=== PATIENT | male | born 1975 | race African-American/Black ===

== ENCOUNTER 2019-02-15 09:20 | Outpatient (CLI) | payer OTHER ==
--- NOTE | 2019-02-15 10:23 | RAD ---
RADIOGRAPH CHEST 2 VIEWS: DATE: 02/15/2019 HISTORY: 43-year-old male with HIV presents with cough. FINDINGS: The lungs are clear. The cardiomediastinal silhouette and hilar shadows appear normal. There is no pl eural effusion or pneumothorax. No osseous abnormality is identified. IMPRESSION: Normal
== END 2019-02-15 09:21 | disposition home or self-care (01) ==
LOC: CT 09:20 → RAD 09:21
PROVIDERS: ATTEND Family Medicine
DX: B20 Human immunodeficiency virus [HIV] disease (principal); R05 Cough
CPT/HCPCS: 71046

== ENCOUNTER 2019-02-21 17:04 | Inpatient (IN) | payer OTHER ==
[2019-02-21 17:53] LABS: #Eosinphils 0.1 thou/uL (0.0-0.7); #Lymphocytes 0.7 thou/uL (1.20-3.40); #Monocytes 0.4 thou/uL (0.11-0.59); %Basophils 0.4 % (0.0-1.0); %Eosinophils 2.4 % (0.0-10.0); %Lymphocytes 22.7 % (21.0-51.0); %Monocytes 12.2 % (0.0-10.0); %Neutrophils 62.3 % (42.0-75.0); Hemoglobin 11.9 g/dL (14.0-18.0); Mean Corpuscular HGB CONC 33.8 g/dL (32.0-36.0); Mean Corpuscular Hemoglobin 28.3 pg (27.0-31.0); Mean Corpuscular Volume 83.7 fL (78.0-98.0); Mean Platelet Volume 7.2 fL (7.4-10.4); Platelet Count 228 thou/uL (130-400); Red Blood Cell (RBC) Count 4.21 mill/uL (4.70-6.10); White Blood Cell (WBC) Count 3.2 thou/uL (4.8-10.8)
[2019-02-21 18:00] LABS: Bacteria/HPF None Seen HPF (None Seen); Bilirubin Negative (Negative); Blood, Urine 1+ (Negative); Clarity Clear (Clear); Glucose, Urine (Dipstick) Normal (Negative); Leukocyte Negative Leu/uL (Negative); Mucous/LPF 2+ LPF (<2+); Nitrite Negative (Negative); Protein, Urine (Dipstick) 30 mg/dL (Neg-Trace); Squamous Epithelial None Seen HPF (0-3); WBC/HPF 0-3 HPF (0-3)
[2019-02-21 18:17] LABS: ALT (SGPT) 12 U/L (8-55); AST (SGOT) 22 U/L (5-34); Albumin 3.9 g/dL (3.5-5.0); Alkaline Phosphatase 84 U/L (40-150); Anion Gap 14 mmol/L (10-20); BUN (Urea Nitrogen) 9 mg/dL (8.9-20.6); Bilirubin, Total 0.4 mg/dL (0.2-1.2); Calc. Creatinine Clearance 0 mL/min (70-130); Calcium 9.7 mg/dL (7.8-10.44); Carbon Dioxide 22 mmol/L (22-29); Chloride 104 mmol/L (98-107); Estimated GFR-MDRD Greater than 90; Globulin 6.4 g/dL (2.4-3.5); Glucose 85 mg/dL (70-105); Protein, Total 10.3 g/dL (6.0-8.3); Sodium 136 mmol/L (136-145)
--- NOTE | 2019-02-21 19:51 | CT ---
CT head noncontrast HISTORY: Dizziness. Altered mental status. FINDINGS: There is no evidence of acute intracranial hemorrhage or infarct. The ventricles appear nor mal in size, shape and position. There is no mass effect or shift of midline structures. Visualized paranasal sinuses remain well-aerated. IMPRESSION: No acute intracranial abnormalities are demonstrated.
[2019-02-21] MEDS ORDERED: Meclizine HCl 25 MG TAB ONE (19:55)
[2019-02-21] MEDS ORDERED: Ondansetron ODT 4 MG TAB PO PRN (22:41)
[2019-02-21] MEDS: Acetaminophen 325 MG TAB PO PRN (22:51)
[2019-02-21] MEDS: Lactated Ringer's 1,000 ML IV SCH (22:51)
[2019-02-21] MEDS: Ondansetron PF 4 MG/2 ML Vial IVP PRN (22:52)
[2019-02-21 23:27] VITALS: BMI 23.1
--- NOTE | 2019-02-21 23:32 | PDOC.FPRHP ---
- History of Present Illness Chief Complaint: generalized weakness History of Present Illness: 43 y/o m, recently diagnosed with HIV, CD4 count of 36, presents to the ED after having gradual increasing weakness and dizziness. Pt states he found out he had HIV last Monday. He plans to tell his family of his diagnosis tomorrow (02/23). C/o body aches, muscle cramps, constipation, nausea, dizziness and SOB. He states he has lost weight of 30 pounds. Pt states he has had sexual intercourse with men since the age of 19. He had a high risk partner starting X2 years ago that was incarcerated for X15 years. He admits to unprotected intercourse with him X1 time. He states he was screened for HIV in 2017 and Jul 2018 with negative results. Pt states he received his anti-retrovirals yesterday but has not started taking them yet. He has also been on bactrim this week for ppx. He c/o of a scaling rash in his fox and hairline that got worse with the bactrim use. - Allergies/Adverse Reactions Allergies Allergy/AdvReac Type Severity Reaction Status Date / Time No Known Drug Allergies Allergy Verified 02/22/19 01:12 - Home Medications Medication Instructions Recorded Confirmed Type Lamivudine/Tenofovir Disop Fum 1 tab DAILY 02/21/19 02/22/19 History [Cimduo 300-300 mg Tablet] Promethazine [Phenergan] 1 tab ASDIR PRN 02/21/19 02/22/19 History Sulfamethoxazole/Trimethoprim 1 tab BID 02/21/19 02/21/19 History [Bactrim DS] - History PMHx: benign. Recent HIV diagnosis, CD4 count 36 PSHx: Appendectomy, ureter stent placement FHx: mother and father both had HTN and DM Social: female and male sexual encounters. X10 male lifetime sexual partners. Several tattoos. Denies IVDA, states he smoke occasional marijuana and used meth by smoking one time last year. - Review of Systems General: reports: fever/chills, weight/appetite/sleep changes (30 lbs since October 2018), night sweats, fatigue Eyes: denies: eye pain, vision changes ENT: denies: nasal congestion, rhinorrhea Respiratory: reports: shortness of breath, exercise intolerance. denies: cough , congestion Cardiovascular: denies: chest pain, palpitation, edema Gastrointestinal: reports: nausea, constipation, abdominal pain. denies: vomiting, diarrhea Genitourinary: denies: incontinence, dysuria, polyuria Skin: reports: rashes (scaling rash in fox and hairline), lesions, itching Musculoskeletal: reports: pain, arthritis/arthralgias Neurological: reports: weakness. denies: numbness, syncope, seizure - Vital signs BP: 126/88 HR: 108 RR: 33 Tmax: 98.0 Pox: 99% on RA Wt: 71 kg - Physical Exam Constitutional: NAD, awake, alert and oriented, other (chachetic) HEENT: normocephalic and atraumatic, PERRLA, EOMI, conjunctiva clear, no scleral icterus, grossly normal vision, grossly normal hearing, MMM, oropharynx clear, other (poor dentition) Neck: supple, FROM, trachea midline, no JVD Chest: no-tender to palpation, other (0.5-1 cm circular lesions scattered over chest and back.) Heart: RRR, normal S1/S2, no murmurs/rubs/gallops, pulses present, no edema Lungs: no respiratory distress, good air movement, no wheezing, no retractions, other (Fine Crackles in right lower lobe) Abdomen: soft, non-tender, bowel sounds present, no masses/distention, no hernias Musculoskeletal: normal structure, normal tone, ROM grossly normal Neurological: no focal deficit, CN II-XII intact, normal sensation Skin: good turgor, capillary refill <2 seconds, no jaundice, other (0.5-1 cm circular macular and erythematous lesions scattered over back, chest, and extremities.) -Skin: scalp and under fox erythmatous with overlying scaling skin rash. Heme/Lymphatic: no unusual bruising or bleeding, no purpura, no petechia Psychiatric: normal mood and affect, good judgment and insight, intact recent and remote memory FMR H&P: Results - Labs Result Diagrams: 02/21/19 23:15 02/21/19 17:44 Lab results: WBC 3.2 thou/uL (4.8-10.8) L 02/21/19 17:44 Hgb 11.9 g/dL (14.0-18.0) L 02/21/19 17:44 Hct 35.2 % (42.0-52.0) L 02/21/19 17:44 MCV 83.7 fL (78.0-98.0) 02/21/19 17:44 Plt Count 228 thou/uL (130-400) 02/21/19 17:44 Neutrophils % 62.3 % (42.0-75.0) 02/21/19 17:44 Sodium 136 mmol/L (136-145) 02/21/19 17:44 Potassium 4.0 mmol/L (3.5-5.1) 02/21/19 17:44 Chloride 104 mmol/L (98-107) 02/21/19 17:44 Carbon Dioxide 22 mmol/L (22-29) 02/21/19 17:44 BUN 9 mg/dL (8.9-20.6) 02/21/19 17:44 Creatinine 0.78 mg/dL (0.7-1.3) 02/21/19 17:44 Glucose 85 mg/dL (70-105) 02/21/19 17:44 Calcium 9.7 mg/dL (7.8-10.44) 02/21/19 17:44 Total Bilirubin 0.4 mg/dL (0.2-1.2) 02/21/19 17:44 AST 22 U/L (5-34) 02/21/19 17:44 ALT 12 U/L (8-55) 02/21/19 17:44 Alkaline Phosphatase 84 U/L (40-150) 02/21/19 17:44 Serum Total Protein 10.3 g/dL (6.0-8.3) H 02/21/19 17:44 Albumin 3.9 g/dL (3.5-5.0) 02/21/19 17:44 Urine Ketones Negative mg/dL (Negative) 02/21/19 17:39 Urine Blood 1+ (Negative) A 02/21/19 17:39 Urine Nitrite Negative (Negative) 02/21/19 17:39 Ur Leukocyte Esterase Negative Kenisha/uL (Negative) 02/21/19 17:39 Urine RBC 11-20 HPF (0-3) A 02/21/19 17:39 Urine WBC 0-3 HPF (0-3) 02/21/19 17:39 Ur Squamous Epith Cells None Seen HPF (0-3) 02/21/19 17:39 Urine Bacteria None Seen HPF (None Seen) 02/21/19 17:39 CD4 count 36 - Radiology Interpretation CT scan - head Status: report reviewed by me (no acute findings.) FMR H&P: A/P - Problem List (1) HIV-1 (human immunodeficiency virus I) Current Visit: Yes Status: Acute Code(s): B20 - HUMAN IMMUNODEFICIENCY VIRUS [HIV] DISEASE (2) AIDS (acquired immune deficiency syndrome) Current Visit: Yes Status: Acute (3) Kaposi sarcoma Current Visit: Yes Status: Suspected Code(s): C46.9 - KAPOSI'S SARCOMA, UNSPECIFIED (4) Problems related to high-risk sexual behavior Current Visit: Yes Status: Acute Code(s): Z72.51 - HIGH RISK HETEROSEXUAL BEHAVIOR (5) Superficial fungal infection of skin Current Visit: Yes Status: Acute Code(s): B36.9 - SUPERFICIAL MYCOSIS, UNSPECIFIED - Plan 43 y/o M admitted to inpatient medical for evaluation of recent HIV diagnosis with low CD4 count. 1. HIV - Recent diagnosis - CD4 count 36 at [facility] lab 2. AIDS - CD4 count - Bactrim and Aithromycin PPx - Ordered serum protein electrophoresis, CBC with smear, EAR and CRP to work up possible malignancy in immunocompromised state - Pt needs thorough lymph node exam to evaluate for possible lymphoma 3. Kaposi Sarcoma - suspected lesions scattered diffusely. 4. High risk sexual behavior with men -Ordered labs for Hep B, Hep C - RPR drawn in clinic, negative - HIV type 1 positive. 5. Tinea Capitus - Fungal infection of scalp and fox skin. - Topical antifungal Nystatin cream Code Status: full code Diet: Regular diet DVT ppx: SCD's Disposition/LOS: Pt stable anticipated at least 2 midnights inpatient FMR H&P: Upper Level - Pertinent history 43 yo male with recent diagnosis of HIV presents with loss of appetite, subjective fevers at home, and overall feeling unwell. Please see agriculture intern note above for further information. General: Cachectic male lying in bed, NAD CV: RRR, no murmurs Respiratory: CTA, no wheezing Extremities: no edema, moves all four equally. Skin: erythematous and scaling lesion to top of head. Scattered purple lesions over body. Psych: Anxious mood with congruent affect, tearful at times Neuro: No focal deficits - Plan Date/Time: 02/21/19 1516 I, Mayo Donaldson MD, have evaluated this patient and agree with findings/ plan as outlined by agriculture intern resident. Pertinent changes/additions are listed here. 1. AIDS - Will check SPEP and Hep C to determine other co-morbidities - Consult I&D in AM - Initiated prophylactic antibiotics 2. Anemia - Likely chronic - Monitor for signs and symptoms of bleeding. - Previously failed colonoscopy due to inadequate prep CODE STATUS: FULL CODE PCP: [facility] Disposition: Stable, will admit for further evaluation. Addendum - Attending - Attending Attestation Date/Time: 02/21/19 9881 I personally evaluated the patient and discussed the management with Dr. Heart/ Anika. I agree with the History, Examination, Assessment and Plan documented above with any addition or exceptions noted below. Patient here with progressive fatigue, night sweats, weight loss, anorexia, body aches, and intermittent fevers. Diagnosed in our clinic 1 week ago with HIV , found to have CD4 count of near 30. He has not started HAART therapy yet. Presents due to progressive symptoms. Exam shows cachexia and scattered skin abnormalities that are overall stable from his clinic visit 1 week ago. He had CXR done outpatient that did not show evidence for pulmonary infection such as PJP or cavitary lesion. Patient lab work shows mild leukopenia, elevated total protein and globulin. Patient to be admitted for acute on chronic immune compromise due to AIDS. ID to be consulted. Will obtain cultures to screen for infection, PCT. Start Bactrim and Azithromycin for ppx but will expand to broad spectrum abx if any source becomes apparent. He will also need peripheral smear and excellent lymph node exam to screen for hematological malignancy such as lymphoma. Will order SPEP due to increased globulins as well as ESR/CRP. Obtain TB testing. Primary concerns at this time would be for either infection in setting of severe immune compromised status or malignancy. 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 No current evidence for viral or candidal esophagitis. Will also screen for other comorbid conditions such as HepC. He was negative for Syphilis in our clinic last week.
[2019-02-21 23:57] LABS: Band 10 % (5-11); Eosinophils 2 % (0-10); Hemoglobin 10.8 g/dL (14.0-18.0); Hypochromia SLIGHT = 6-15 cells (100X) (0-5/hpf); Lymphocytes 16 % (21-51); MDiff Complete? YES; Mean Corpuscular HGB CONC 34.4 g/dL (32.0-36.0); Mean Corpuscular Hemoglobin 28.2 pg (27.0-31.0); Mean Corpuscular Volume 81.8 fL (78.0-98.0); Mean Platelet Volume 7.5 fL (7.4-10.4); Metamyelocyte 2 % (0-0); Neutrophil 70 % (42-75); Platelet Count 213 thou/uL (130-400); Platelet Morphology Comment Appears Adequate; RBC Distribution Width 12.1 % (11.5-14.5); Red Blood Cell (RBC) Count 3.84 mill/uL (4.70-6.10); White Blood Cell (WBC) Count 4.2 thou/uL (4.8-10.8)
[2019-02-22 00:29] LABS: HBCM Index 0.09 S/CO (0-0.79); HBSAg Index 0.17 S/CO (0-0.99); Hep B Surf AB Non-Reactive (NonReactive); Hep B Surf Ag Non-Reactive S/CO (NonReactive); Hep C IgG Ab Non-Reactive (NonReactive); Hep C Index 0.12 S/CO (0-0.79); Hepatitis B Core IgM Abs Non-Reactive (NonReactive)
[2019-02-22] MEDS ORDERED: Promethazine 25 MG TAB PO PRN (00:52)
[2019-02-22] MEDS ORDERED: Azithromycin 250 MG TAB PO SCH ×2 (01:00→09:00)
--- NOTE | 2019-02-22 05:46 | PDOC.FM ---
- Subjective Subjective: Patient doing well this morning. Reports that he has been having night sweats for a few months. Reports of a recent fever at home a few days ago of 102.1. Has also been having a dry cough. - Objective Vital Signs & Weight: Vital Signs (12 hours) Temp Pulse Resp BP Pulse Ox 02/22/19 04:00 97.6 F 87 18 101/69 99 02/21/19 22:41 98.0 F 102 H 20 102/67 99 Weight Weight 71 kg Result Diagrams: 02/22/19 07:20 02/22/19 07:20 Phys Exam - Physical Examination Constitutional: NAD clammy HEENT: moist MMs, sclera anicteric Neck: no nodes, full ROM Respiratory: no wheezing, clear to auscultation bilateral Cardiovascular: RRR, no significant murmur Gastrointestinal: soft, non-tender Musculoskeletal: no edema, pulses present Neurological: normal sensation, moves all 4 limbs no axillary, femoral, or cervical nodes appreciated on exam Psychiatric: normal affect, A&O x 3 Skin: normal turgor, cap refill <2 seconds Deviation from normal: spots throughout back and arms Dx/Plan (1) AIDS (acquired immune deficiency syndrome) Status: Acute (2) HIV-1 (human immunodeficiency virus I) Code(s): B20 - HUMAN IMMUNODEFICIENCY VIRUS [HIV] DISEASE Status: Acute (3) Problems related to high-risk sexual behavior Code(s): Z72.51 - HIGH RISK HETEROSEXUAL BEHAVIOR Status: Acute (4) Superficial fungal infection of skin Code(s): B36.9 - SUPERFICIAL MYCOSIS, UNSPECIFIED Status: Acute (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 # HIV - Recent diagnosis, family is NOT aware of diagnosis but patient plans on telling them today - CD4 count 36 at [facility] lab - Has home Cimduo 300mg, has not started taking yet. Will start today # AIDS - CD4 count - Bactrim and Arthromycin PPx - Serum protein electrophoresis, CBC with smear to work up possible malignancy in immunocompromised state - ESR elevated at 66 - TB quant drawn - Dr. Finney, ID, has been consulted, appreciate recs - Brain CT negative # Kaposi Sarcoma - suspected - lesions scattered diffusely throughout back and arms # High risk sexual behavior with men - Hep B, Hep C negative - RPR drawn in clinic, negative - HIV type 1 positive. # Tinea Capitus - Fungal infection of scalp and fox skin. - Topical antifungal Nystatin cream Code Status: full code Diet: Regular diet DVT ppx: SCD's Dispo: inpatient for HIV/AIDS related testing, following Dr. Finney recs Addendum - Attending - Attending Attestation Date/Time: 02/22/191938 I personally evaluated the patient and discussed the management with Dr. Finch. I agree with the History, Examination, Assessment and Plan documented above with any addition or exceptions noted below. Starting antiretroviral treatment. Pt on azithromycin and bactrim. Dr. Finney has been consulted and recs are appreciated. CD4 count is low and viral load is high. Will add symptomatic meds for cough, dizziness.
[2019-02-22 07:41] LABS: Hemoglobin 10.4 g/dL (14.0-18.0); Mean Corpuscular HGB CONC 34.5 g/dL (32.0-36.0); Mean Corpuscular Hemoglobin 28.6 pg (27.0-31.0); Mean Corpuscular Volume 82.8 fL (78.0-98.0); Mean Platelet Volume 7.4 fL (7.4-10.4); Platelet Count 196 thou/uL (130-400); RBC Distribution Width 12.2 % (11.5-14.5); Red Blood Cell (RBC) Count 3.65 mill/uL (4.70-6.10); White Blood Cell (WBC) Count 2.4 thou/uL (4.8-10.8)
[2019-02-22 07:59] LABS: ALT (SGPT) 12 U/L (8-55); AST (SGOT) 20 U/L (5-34); Albumin 3.4 g/dL (3.5-5.0); Alkaline Phosphatase 71 U/L (40-150); Anion Gap 11 mmol/L (10-20); BUN (Urea Nitrogen) 11 mg/dL (8.9-20.6); Bilirubin, Total 0.3 mg/dL (0.2-1.2); Calc. Creatinine Clearance 132 mL/min (70-130); Calcium 8.9 mg/dL (7.8-10.44); Carbon Dioxide 24 mmol/L (22-29); Chloride 104 mmol/L (98-107); Estimated GFR-MDRD Greater than 90; Globulin 5.2 g/dL (2.4-3.5); Glucose 84 mg/dL (70-105); Protein, Total 8.6 g/dL (6.0-8.3); Sodium 135 mmol/L (136-145)
[2019-02-22] MEDS: Acetaminophen 325 MG TAB PO PRN ×2 (08:24→18:04)
[2019-02-22] MEDS: Lactated Ringer's 1,000 ML IV SCH (08:32)
[2019-02-22] MEDS: Nystatin Ointment 15 GM TUBE TOP SCH ×2 (08:32→19:56)
[2019-02-22] MEDS: Promethazine 25 MG TAB PO PRN (08:33)
--- NOTE | 2019-02-22 08:33 | PDOC.EVN ---
Event Note - Event Note Event Note: Mr. Galdamez is a 43 yo M with a history of rectal bleeding and constipation who presents, due to weakness and dizziness 2/2 new HIV diagnosis. He was scheduled for a colonoscopy this past Monday, but it was unable to be performed. The patient was unable to complete the prep and he developed anal fissures. I reviewed his labs and they are down trending. The primary team is monitoring at this time. We will reschedule his colonoscopy at a later time. His Cimduo was ordered last Monday, but he did not receive the medication till this Monday. He did not start the medication. I spoke to him this morning about the importance of taking the medication. He was not taking the medication , due to the fact that he was feeling so weak and dizzy. He started Bactrim last Monday. He is currently taking Bactrim DS BID, but after 2 weeks should be cut down to the prophylactic dosing of Bactrim DS once daily. The primary team has added Azithro for prophylaxis for possible MAC due to his CD4 count of 36. They are also getting TB testing. Also, they are working him up with SPEP for elevated protein. Dr. Finney has been contacted, appreciate his recommendations. He says he has been eating better, since he received the Zofran for his nausea. His a couple of years ago from an aneurysm. He is a single father to a 10 year old. He has not told his family at this time about his diagnosis. He says he plans to talk to them today. His mother is his primary social support at this time. He was distraught upon receiving the diagnosis last Monday, but he seems to be doing better today. I agree with the teams current management. I will follow along.
[2019-02-22] MEDS: LAMIVUDINE PO SCH (08:39)
[2019-02-22] MEDS: TENOFOVIR DISOPROXIL FUMARATE PO SCH (08:39)
[2019-02-22 08:56] LABS: Band 4 % (5-11); Eosinophils 4 % (0-10); Lymphocytes 41 % (21-51); MDiff Complete? YES; Monocytes 9 % (0-10); Neutrophil 40 % (42-75); Platelet Morphology Comment Appears Adequate; Polychromasia SLIGHT = 2-3 cells (100X) (0-2/hpf); Reactive Lymphocytes 1 % (0-10)
[2019-02-22] MEDS ORDERED: Sulfameth/Trimethoprim DS 800-160mg TAB PO SCH (09:00)
[2019-02-22] MEDS ORDERED: Meclizine HCl 12.5 MG TAB PO PRN (09:50)
--- NOTE | 2019-02-22 21:34 | CON ---
DATE OF CONSULTATION: 02/22/2019 REASON FOR CONSULTATION: New HIV infection with symptoms. HISTORY OF PRESENT ILLNESS: A 43-year-old, history of worsening weakness following recent identification of HIV seropositive status. He also has a noticeable weight loss for about 30 pounds over the past few weeks to months and he was seen in the [facility] and after being prescribed his treatments, he developed worsening of his weakness sensation and he was eventually admitted for management. He has intermittent headaches, some dizziness when he is standing up, nausea intermittently. No visual symptoms, odynophagia, dysphagia, no sore throat, no cough or sputum production, chest pain, no back pain. He has sensation of shooting pains in lower extremities and intermittent weakness. No genitourinary symptoms. No diarrhea. No constipation. Had some bleeding, which he blames it on anal fissures. PAST MEDICAL HISTORY: HIV seropositive status, recently identified. Previous HIV test was done in [place] reportedly, was an oral swab which was negative. History of nephrolithiasis with prior ureteral stent placement, appendectomy. Denies any history of syphilis or hepatitis diagnosis. SOCIAL HISTORY: He lives in [place], works in a fpc, and never did IV drugs, once used methamphetamine by smoking. He is bisexual. CURRENT MEDICATIONS: 1. Tylenol. 2. Zithromax. 3. Tessalon. 4. Antivert. 5. Mycostatin. 6. Zofran. 7. Cimduo. 8. Bactrim. PHYSICAL EXAMINATION: VITAL SIGNS: Temperature normal, BP 104/69, pulse 80, respirations 18, O2 saturation 99. SKIN: Shows seborrheic dermatosis in the facial area. No lymphadenopathy. Peripheral IV access. HEENT: Ocular movements conjugate. Sclerae, white. Pupils are equal. Conjunctivae, normal. Oral cavity, without any abnormalities. Teeth in good shape. NECK: Supple. No jugular vein distention or carotid bruits. LUNGS: Symmetric. Clear breath sounds. HEART: S1 and S2, regular rate. No S3 or S4. ABDOMEN: Soft, not distended or tender. No ascites. No bladder distention. : No genital abnormalities. Perianal area is normal except for a few skin tags. EXTREMITIES: No joint inflammatory activity. Strength in upper and lower extremities is 5/5. Pulses 1+ in dorsalis pedis. No edema. Plantar responses are flexor. No clonus. NEUROLOGIC: Cognitive function appears to be intact. LABORATORY DATA: White cell count 3.2, hemoglobin 11.9, platelets 228 with 62% neutrophils. Chemistry, normal except for serum total protein of 10.3, CRP 0.5, albumin 3.9. Procalcitonin 0.03. Urinalysis, 0 to 3 wbc's, 11 to 20 rbc's. Hepatitis serology negative. Reportedly, his CD4 cell count was 30, but I do not have confirmation of that yet. IMAGING STUDIES: Chest x-ray with normal findings. Abdomen and pelvis CT with 2 mm distal ureteral calculus, mild left hydronephrosis. Brain CT was normal. ASSESSMENT: Newly diagnosed human immunodeficiency virus seropositive status with evidence of advanced immunosuppression. Reportedly, CD4 cell count was in the 30s, but I need to confirm that. He is symptomatic with weight loss, seborrheic dermatitis, nausea and some neuropathic symptoms in the lower extremities. He will need to start Cimduo JAYNA. We will decrease his Bactrim intake to one double-strength, Mondays, Wednesdays, Fridays. No other prophylaxis needed. Submit OI, opportunistic infection assays including CMV, DNA, PCR, cryptococcus antigen, Mycobacterium avium complex, blood cultures, histoplasma antigen. We will check his toxo IgG antibody level as well. May need a spinal fluid evaluation depending on clinical progress and the results of the cryptococcus antigen and CMV, DNA, PCR. Job ID: [id number]
[2019-02-23] MEDS: Ondansetron PF 4 MG/2 ML Vial IVP PRN ×2 (00:56→17:39)
[2019-02-23] MEDS: Benzonatate 100 MG CAP PO PRN ×3 (00:56→14:35)
[2019-02-23] MEDS: Acetaminophen 325 MG TAB PO PRN ×3 (00:56→14:34)
[2019-02-23] MEDS: Lactated Ringer's 1,000 ML IV SCH ×2 (00:56→14:27)
--- NOTE | 2019-02-23 05:28 | PDOC.FM ---
- Subjective Subjective: Patient doing well this morning. Reportedly told his cousin about his diagnosis , and plans to tell the rest of his family today. Had night sweats again last night, and has had some diarrhea though he thinks it's due to the food he ate yesterday. Will let me know today if it continues. Began taking cimduo yesterday. Agreeable to current plan of care. - Objective Vital Signs & Weight: Vital Signs (12 hours) Temp Pulse Resp BP Pulse Ox 02/23/19 05:00 97.7 F 69 20 102/68 97 02/23/19 00:00 98.3 F 76 20 115/74 100 02/22/19 19:23 98.6 F 93 20 106/65 100 Weight Admit Weight 71 kg Weight 71 kg Result Diagrams: 02/22/19 07:20 02/22/19 07:20 Phys Exam - Physical Examination HEENT: moist MMs, sclera anicteric Neck: supple, full ROM Respiratory: no wheezing, clear to auscultation bilateral Cardiovascular: RRR, no significant murmur Gastrointestinal: soft, non-tender Musculoskeletal: no edema, pulses present Neurological: normal sensation, moves all 4 limbs Lymphatic: no nodes Psychiatric: normal affect, A&O x 3 Skin: normal turgor, cap refill <2 seconds Deviation from normal: moist clammy skin, lesions on arms and back Dx/Plan (1) AIDS (acquired immune deficiency syndrome) Status: Acute (2) HIV-1 (human immunodeficiency virus I) Code(s): B20 - HUMAN IMMUNODEFICIENCY VIRUS [HIV] DISEASE Status: Acute (3) Problems related to high-risk sexual behavior Code(s): Z72.51 - HIGH RISK HETEROSEXUAL BEHAVIOR Status: Acute (4) Superficial fungal infection of skin Code(s): B36.9 - SUPERFICIAL MYCOSIS, UNSPECIFIED Status: Acute (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 # HIV - Recent diagnosis, family is NOT aware of diagnosis but patient plans on telling them today - CD4 count 36 at [facility] lab - Has home Cimduo 300mg, started 02/22 - HIV genotyping in clinic shows ibanez-susceptible to anti-retrovirals # AIDS - CD4 count 36, viral count 310,000 per clinic labs - Bactrim MWF PPx - Serum protein electrophoresis - CBC smear: normocytic normochromic anemia, some Pulger-Huet morphology and rare metamyelocyte left shift - ESR elevated at 66 - CRP wnl at 0.5 - TB quant - cryptococcus antigen negative - CMV, AFB, histoplasma pending - Dr. Finney, ID, has been consulted, appreciate recs -d/c azithromycin 02/22, transition Bactrim to [facility] -MAC, AFP, PCR, histoplasma, cryptococcus, PCR, CMV, Toxo IgG, possible spinal evaluation pending clinical progression and lab results - Brain CT negative - Blood Cx ngtd # Kaposi Sarcoma - suspected - lesions scattered diffusely throughout back and arms # High risk sexual behavior with men - Hep B, Hep C negative - RPR drawn in clinic, negative - HIV type 1 positive. # Tinea Capitus - Fungal infection of scalp and fox skin. - Topical antifungal Nystatin cream Code Status: full code Diet: Regular diet DVT ppx: SCD's Dispo: inpatient for HIV/AIDS related testing, following Dr. Finney recs Addendum - Attending - Attending Attestation Date/Time: 02/23/19 8950 I personally evaluated the patient and discussed the management with Dr. Finch. I agree with the History, Examination, Assessment and Plan documented above with any addition or exceptions noted below. The patient is feeling a little better. Will get physical therapy on board. He started cimduo yesterday. Multiple labs pending per Dr. Finney.
[2019-02-23] MEDS: LAMIVUDINE PO SCH (08:25)
[2019-02-23] MEDS: TENOFOVIR DISOPROXIL FUMARATE PO SCH (08:25)
[2019-02-23] MEDS: Nystatin Ointment 15 GM TUBE TOP SCH ×2 (08:27→20:47)
[2019-02-23] MEDS: Promethazine 25 MG TAB PO PRN (08:34)
--- NOTE | 2019-02-23 22:33 | EKG ---
Test Reason : Blood Pressure : / mmHG Vent. Rate : 098 BPM Atrial Rate : 098 BPM P-R Int : 156 ms QRS Dur : 070 ms QT Int : 332 ms P-R-T Axes : 078 075 051 degrees QTc Int : 423 ms Normal sinus rhythm Moderate voltage criteria for LVH, may be normal variant Borderline ECG Confirmed by KELVIN CALLAWAY, GERALD Leggett ([id number]), loan expeditor SOPHIE CARPIO ([id number]) on 02/23/2019 10:32:45 PM Referred By: Confirmed By:GERALD WARREN MD
[2019-02-24] MEDS: Lactated Ringer's 1,000 ML IV SCH ×2 (03:04→16:38)
--- NOTE | 2019-02-24 05:09 | PDOC.FM ---
- Subjective Subjective: Patient afebrile overnight. Doing well this morning, dizziness has improved. Ate better yesterday, most of his dinner. Reports of headache this morning, not severe. - Objective Vital Signs & Weight: Vital Signs (12 hours) Temp Pulse Resp BP Pulse Ox 02/24/19 04:00 98.2 F 88 20 100/74 99 02/23/19 19:35 97.6 F 85 20 108/74 100 02/23/19 17:45 98.2 F 75 18 122/81 100 Weight Admit Weight 71 kg Weight 71 kg I&O: 02/22/19 02/23/19 02/24/19 06:59 06:59 06:59 Intake Total 970 Balance 970 Result Diagrams: 02/22/19 07:20 02/22/19 07:20 Phys Exam - Physical Examination Constitutional: NAD HEENT: moist MMs, sclera anicteric Neck: supple, full ROM Respiratory: no wheezing, clear to auscultation bilateral Cardiovascular: RRR, no significant murmur Gastrointestinal: soft, non-tender Musculoskeletal: no edema, pulses present Neurological: normal sensation, moves all 4 limbs Lymphatic: no nodes Psychiatric: normal affect, A&O x 3 Skin: normal turgor, cap refill <2 seconds Dx/Plan (1) AIDS (acquired immune deficiency syndrome) Status: Acute (2) HIV-1 (human immunodeficiency virus I) Code(s): B20 - HUMAN IMMUNODEFICIENCY VIRUS [HIV] DISEASE Status: Acute (3) Problems related to high-risk sexual behavior Code(s): Z72.51 - HIGH RISK HETEROSEXUAL BEHAVIOR Status: Acute (4) Superficial fungal infection of skin Code(s): B36.9 - SUPERFICIAL MYCOSIS, UNSPECIFIED Status: Acute (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 # HIV - Recent diagnosis, family is NOT aware of diagnosis but patient plans on telling them - CD4 count 36 at [facility] lab, labs now in patient's paper chart - Has home Cimduo 300mg, started 02/22 - HIV genotyping in clinic shows ibanez-susceptible to anti-retrovirals # AIDS - CD4 count 36, viral count 310,000 per clinic labs, in paper chart - afebrile overnight - Bactrim MWF PPx - Serum protein electrophoresis - CBC smear: normocytic normochromic anemia, some Pulger-Huet morphology and rare metamyelocyte left shift - ESR elevated at 66 - CRP wnl at 0.5 - TB quant - cryptococcus antigen negative - CMV, AFB, histoplasma pending - Dr. Finney, ID, has been consulted, appreciate recs -d/c azithromycin 02/22, transition Bactrim to MWF -MAC, AFP, PCR, histoplasma, cryptococcus, PCR, CMV, Toxo IgG, possible spinal evaluation pending clinical progression and lab results - Brain CT negative - Blood Cx ngtd # Kaposi Sarcoma - suspected - lesions scattered diffusely throughout back and arms # High risk sexual behavior with men - Hep B, Hep C negative - RPR drawn in clinic, negative - HIV type 1 positive. # Tinea Capitus - Fungal infection of scalp and fox skin. - Topical antifungal Nystatin cream Code Status: full code Diet: Regular diet DVT ppx: SCD's Dispo: inpatient for HIV/AIDS related testing, following Dr. Finney recs Addendum - Attending - Attending Attestation Date/Time: 02/24/19 0602 I personally evaluated the patient and discussed the management with Dr. Finch. I agree with the History, Examination, Assessment and Plan documented above with any addition or exceptions noted below. The patient notes his dizziness is improved. He still has a mild headache and just received tylenol. Cultures so far are negative. Several labs still pending. Pt has multiple questions regarding his diagnosis and expected course.
[2019-02-24] MEDS: Acetaminophen 325 MG TAB PO PRN ×3 (06:22→18:58)
[2019-02-24] MEDS: Nystatin Ointment 15 GM TUBE TOP SCH ×2 (07:40→20:06)
[2019-02-24] MEDS: TENOFOVIR DISOPROXIL FUMARATE PO SCH (07:41)
[2019-02-24] MEDS: LAMIVUDINE PO SCH (07:41)
[2019-02-24] MEDS: Ondansetron PF 4 MG/2 ML Vial IVP PRN ×2 (12:13→21:23)
[2019-02-24] MEDS: Benzonatate 100 MG CAP PO PRN (12:13)
--- NOTE | 2019-02-24 13:58 | PRG ---
DATE OF SERVICE: 02/24/2019 SUBJECTIVE: Mr. Galdamez is feeling better. Appetite has improved. He is able to eat. No abdominal pain. No diarrhea. Still has moderate headaches. No visual symptoms. No dyspnea. No cough. OBJECTIVE: VITAL SIGNS: He has been afebrile. BP 116/75, pulse 82, respirations 16, O2 saturation 100%. GENERAL: Appears in no distress. HEENT: Ocular movements normal. LUNGS: Clear. HEART: S1, S2. Regular rate. ABDOMEN: Soft, not distended. MUSCULOSKELETAL: No joint inflammatory activity. LABORATORY DATA: White cell count 2.4, hemoglobin 10.4, platelets 196, 40% neutrophils. Creatinine 0.74. Hepatitis serology negative. The other studies are still pending. Microbiology with thus far negative blood cultures, final cryptococcus antigen was negative. ASSESSMENT AND PLAN: Advanced human immunodeficiency virus infection with symptoms including headaches and gastrointestinal symptoms and some element of wasting syndrome, which seems to be improving rapidly with Cimduo and Bactrim prophylaxis. I think we can withhold the spinal tap for now. Continue treating. May have to order a spinal tap to evaluate CSF crypto antigen in other assays depending on persistence of headache or not. If he continues to improve this way, should be able to be discharged on Cimduo and Bactrim soon. Job ID: [id number]
--- NOTE | 2019-02-25 04:59 | PDOC.FM ---
- Subjective Subjective: He complains of night sweats. He was having them previously at home, but he feels like they have gotten worse. He says he has no headache. He is eating well and has no questions at this time. Dr. Finney came and spoke to him yesterday, and he has better understanding of what is going on today. - Objective MAR Reviewed: Yes Vital Signs & Weight: Vital Signs (12 hours) Temp Pulse Resp BP Pulse Ox 02/24/19 20:04 99 02/24/19 19:42 98.4 F 75 18 120/81 99 Weight Admit Weight 71 kg Weight 71 kg I&O: 02/23/19 02/24/19 02/25/19 06:59 06:59 06:59 Intake Total 970 1080 Balance 970 1080 Result Diagrams: 02/22/19 07:20 02/22/19 07:20 Phys Exam - Physical Examination Constitutional: NAD HEENT: PERRLA, sclera anicteric Neck: supple, full ROM Respiratory: clear to auscultation bilateral Cardiovascular: RRR, no significant murmur Gastrointestinal: soft, non-tender, positive bowel sounds Musculoskeletal: no edema, pulses present Neurological: moves all 4 limbs Psychiatric: normal affect, A&O x 3 Skin: no rash Dx/Plan (1) AIDS (acquired immune deficiency syndrome) Status: Acute (2) HIV-1 (human immunodeficiency virus I) Code(s): B20 - HUMAN IMMUNODEFICIENCY VIRUS [HIV] DISEASE Status: Acute (3) Problems related to high-risk sexual behavior Code(s): Z72.51 - HIGH RISK HETEROSEXUAL BEHAVIOR Status: Acute Qualifiers: High risk sexual behavior type: bisexual Qualified Code(s): Z72.53 - High risk bisexual behavior (4) Superficial fungal infection of skin Code(s): B36.9 - SUPERFICIAL MYCOSIS, UNSPECIFIED Status: Chronic (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 1. HIV * Recent diagnosis, family is NOT aware of diagnosis but patient plans on telling them * CD4 count 36 at [facility] lab, labs now in patient's paper chart * Has home Cimduo 300mg, started 02/22 * HIV genotyping in clinic shows ibanez-susceptible to anti-retrovirals 2. AIDS * CD4 count 36, viral count 310,000 per clinic labs, in paper chart * afebrile overnight * Bactrim MWF PPx * Serum protein electrophoresis * CBC smear: normocytic normochromic anemia, some Pulger-Huet morphology and rare metamyelocyte left shift * ESR elevated at 66 * CRP wnl at 0.5 * cryptococcus antigen negative * CMV, AFB, histoplasma, Quant TB pending * Dr. Finney, ID, has been consulted, appreciate recs * d/c azithromycin 02/22, transition Bactrim to MWF * MAC, AFP, PCR, histoplasma, cryptococcus, PCR, CMV, Toxo IgG * Possible spinal evaluation pending clinical progression and lab results, but will hold at this time * Brain CT negative * Blood Cx ngtd 3. Kaposi Sarcoma * suspected * lesions scattered diffusely throughout back and arms, but significantly improving 4. High risk sexual behavior with men * Hep B, Hep C negative * RPR drawn in clinic, negative * HIV type 1 positive. 5. Tinea Capitus * Fungal infection of scalp and fox skin. * Topical antifungal Nystatin cream Code Status: full code Diet: Regular diet DVT ppx: SCD's Dispo: Inpatient for HIV/AIDS related testing, following Dr. Finney recar. Will get a CBC this afternoon and D/C if he is doing well. Addendum - Attending - Attending Attestation Date/Time: 02/25/19 8428 I personally evaluated the patient and discussed the management with Dr. Schultz. I agree with the History, Examination, Assessment and Plan documented above with any addition or exceptions noted below. Patient here for treatment of newly diagnosed advanced HIV/AIDS infection. He is currently tolerating HAART therapy well. No headaches today. Send out labs still pending. Discuss with ID but potential discharge with outpatient follow up as it does not appear the patient needs anything further inpatient.
[2019-02-25] MEDS: Lactated Ringer's 1,000 ML IV SCH (05:31)
[2019-02-25] MEDS: TENOFOVIR DISOPROXIL FUMARATE PO SCH (07:46)
[2019-02-25] MEDS: LAMIVUDINE PO SCH (07:46)
[2019-02-25] MEDS: Nystatin Ointment 15 GM TUBE TOP SCH (07:47)
[2019-02-25] MEDS: Acetaminophen 325 MG TAB PO PRN ×2 (07:50→14:37)
[2019-02-25] MEDS ORDERED: Sulfameth/Trimethoprim DS 800-160mg TAB PO SCH (09:00)
[2019-02-25 15:02] LABS: #Eosinphils 0.2 thou/uL (0.0-0.7); #Monocytes 0.3 thou/uL (0.11-0.59); #Neutrophils 1.3 thou/uL (1.40-6.50); %Basophils 0.3 % (0.0-1.0); %Eosinophils 8.1 % (0.0-10.0); %Lymphocytes 34.3 % (21.0-51.0); %Monocytes 10.1 % (0.0-10.0); %Neutrophils 47.2 % (42.0-75.0); Hemoglobin 10.4 g/dL (14.0-18.0); Mean Corpuscular HGB CONC 34.4 g/dL (32.0-36.0); Mean Corpuscular Hemoglobin 29.1 pg (27.0-31.0); Mean Corpuscular Volume 84.4 fL (78.0-98.0); Mean Platelet Volume 7.3 fL (7.4-10.4); Platelet Count 224 thou/uL (130-400); RBC Distribution Width 12.2 % (11.5-14.5); Red Blood Cell (RBC) Count 3.58 mill/uL (4.70-6.10); White Blood Cell (WBC) Count 2.8 thou/uL (4.8-10.8)
[2019-02-25 16:09] LABS: A/G Ratio 0.5 (0.7-1.7); Albumin 3.1 g/dL (2.9-4.4); Alpha 1 0.3 g/dL (0.0-0.4); Beta 1.2 g/dL (0.7-1.3); Gamma 3.6 g/dL (0.4-1.8); M-Spike Not Observed g/dL (Not Observed)
[2019-02-25 16:50] VITALS: BP 112/74; TEMP 97.5
--- NOTE | 2019-02-26 11:30 | DIS ---
DATE OF ADMISSION: 02/21/2019 DATE OF DISCHARGE: 02/25/2019 RESIDENT: Galo Schultz MD ADMITTING ATTENDING: Hi Beebe MD DISCHARGE ATTENDING: Hi Beebe MD CONSULTS: BRIAN, Dr. Finney. PROCEDURES: Brain CT on admission shows no acute cranial abnormalities. PRIMARY DIAGNOSIS: 1. Acquired immunodeficiency syndrome. SECONDARY DIAGNOSES: 1. Kaposi sarcoma. 2. Tinea capitis. 3. Problems related to high-risk sexual behavior. DISCHARGE MEDICATIONS: None. He will continue on his home medications and change Bactrim to one tablet double strength Monday, Monday, Monday, and continue taking Cimduo one tablet daily. HISTORY OF PRESENT ILLNESS: Mr. Charlie Galdamez is a 43-year-old male, who was recently diagnosed with HIV and later found to have a CD4 count of 36 with a viral load of 310,000. He presents to the ED after having gradually increased weakness and dizziness. He complains of body aches, muscle cramps, constipation, nausea , dizziness, shortness of breath, and rectal bleeding. He states he has lost weight over the last 6 months. The patient found that he had HIV last Monday and he has begun to tell his family, but has still not told his mother yet. He has had sexual intercourse with both men and women and did not use condoms regularly. He has informed his show partners of his recent diagnosis. He was screened back in last in July 2018 with negative STI screening result, but discovered his diagnosis last week with re-screening. The patient started retrovirals during his hospital stay on Monday. He has also been taking Bactrim for PCP prophylaxis after chest x-ray did not reveal any infiltrate. He has had hepatitis screening that was negative. His RPR is negative. His HLA -B 5701 is negative. His genotyping showed no resistance. We are still waiting on TB and CMV and histo labs, but the patient is doing well. He is eating. He no longer has complaints of headache and he no longer has the symptoms that he was experiencing when he came in and he will be discharged in stable condition. DISCHARGE INSTRUCTIONS: 1. Location: Home. 2. Diet: Regular. 3. Activity: As tolerated. 4. Followup: * Follow up with PCP in 7 days * Follow up with Dr. Jay Finney, Infectious Disease doctor within 2 to 3 weeks. Job ID: [id number] [facility]
--- NOTE | 2019-02-27 06:08 | PQF ---
PATRICK QUISPE JASON MD [id number] CLINICAL DOCUMENTATION CLARIFICATION FORM: POST DISCHARGE Addendum to original discharge summary date: ____ Late entry note date: __ Date: 02-27-2019 ATTN: Luis Mayo Please exercise your independent, professional judgment in responding to the clarification form. Clinical indicators are provided on the bottom of this form for your review Can the nutritional status of the patient be further specify as: Please check appropriate box(s): [ ] Protein Calorie Malnutrition: [ ] Mild [ ] Moderate [ ] Severe [ ] Other Malnutrition (please specify) __ [ ] Underweight without malnutrition [ ] Cachexia [ ] Other diagnosis (please specify) [ ] Unable to determine CLINICAL INDICATORS: HP 02/[address] Heart having gradual increasing weakness and dizziness HP 02/[address] Heart He has lost weight of 30 pounds HP 02/[address] Heart Progressive fatigue, night sweats, weight loss, anorexia body aches and intermittent fevers HP 02/[address] 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 Schultz Acquired Immunodeficiency syndrome DS 02/[address] Schultz He states he has lost weight over the last 6 mos BMI=23.1 kg RISK FACTORS HP 02/21 Dr. Heart- AIDS HP 02/21 Dr. Heart- Kaposi Sarcoma HP 02/21 Dr. Heart- Anemia Consult Dr. Finney- evidence of advance immunosuppression TREATMENT: Dietary Consult MAR IV fluids Moderate Malnutrition (in acute illness) Energy Intake: <75% of estimated energy requirement for > 7 days Weight Loss: 1-2%/1 week; 5%/ 1 month; 7.5%/3 months Other: mild body fat loss; mild muscle mass loss; mild fluid accumulation; Severe Malnutrition (in acute illness) Energy Intake: < 50% of estimated energy requirement for > 5 days Weight Loss: >1-2%/1 week; >5%/1 month; >7.5%/3 months Other: moderate body fat loss; moderate muscle mass loss; moderate- severe fluid accumulation; measurably reduced transition lead strength Moderate Malnutrition (in chronic illness) Energy Intake: <75% of estimated energy requirement for >1 month Weight Loss: 5%/1 month; 7.5%/3 months; 10%/6 months; 20%/1 year Other: mild body fat loss; mild muscle mass loss; mild fluid accumulation Severe Malnutrition (in chronic illness) Energy Intake: <75% of estimated energy requirement for >1 month Weight Loss: >5%/1 month; >7.5%/3 months; >10%/6 months; >20%/1 year Other: severe body fat loss; severe muscle mass loss; severe fluid accumulation ; measurably reduced transition lead strength (This form is maintained as a part of the permanent medical record) 2014 [employer] All Rights Reserved [email or web address] [email or web address] [not provided] MTDD
[2019-02-27 06:10] LABS: CMV DNA-PCR Test Positive < 200 IU/mL (Negative)
[2019-02-28 12:10] LABS: QuantiFERON-TB Gold Plus Negative (Negative)
== END 2019-02-25 19:20 | disposition home or self-care (01) | DRG 975 ==
LOC: ERS 17:04 → T4-B 22:38
PROVIDERS: ADMIT Student in an Organized Health Care Education/Training Program; ATTEND Student in an Organized Health Care Education/Training Program
DX: B20 Human immunodeficiency virus [HIV] disease (principal); C46.9 Kaposi's sarcoma, unspecified; E46 Unspecified protein-calorie malnutrition; F17.210 Nicotine dependence, cigarettes, uncomplicated; B35.0 Tinea barbae and tinea capitis; D64.9 Anemia, unspecified; L21.0 Seborrhea capitis; Z60.2 Problems related to living alone; Z68.23 Body mass index [BMI] 23.0-23.9, adult; Z90.49 Acquired absence of other specified parts of digestive tract
CPT/HCPCS: 36415; 70450; 80053; 81003; 81015; 83605; 84145; 84165; 85025; 85060; 85652; 86140; 86480; 86705; 86706; 86777; 86803; 87040; 87116; 87206; 87340; 87385; 87497; 87521; 87899; 93005; J2405; J8597; Q0162; Q0169

== ENCOUNTER 2019-03-25 07:41 | Day surgery (SDC) | payer OTHER ==
[2019-03-22 12:54] VITALS: BMI 23.6
[~2019-03-25 07:41] MED LIST: FLU VACC QS2019-20(6MOS UP)/PF 60 MCG/0.5 ML SYRINGE IM ONE
[2019-03-25 09:36] LABS: Color Of CSF Supernatant COLORLESS (Colorless); Tube # 2; Unspun CSF Color COLORLESS (Colorless)
[2019-03-25 09:48] LABS: CSF, Glucose 51 mg/dl (40-70); CSF, Protein 74 mg/dL (15-40)
--- NOTE | 2019-03-25 10:01 | RAD ---
Fluoroscopic guided lumbar puncture HISTORY: Headache. Dizziness. HIV. FINDINGS: After explaining the procedure and answering all questions, the lower back was prepped and draped in usual sterile fashion. Sterile technique, buffered local anesthesia, fluoroscopic guidance, and a left posterolateral L2-3 approach were used to carefully advance the tip of a 20-gaug e spinal needle into the thecal sac. A total volume of 15.5 cc clear CSF was collected in 4 sterile tubes and sent to laboratory for analysis. Needle was removed. Patient tolerated the procedure well a nd was transferred to MRI in good condition. Fluoroscopy time 0.2 minutes. IMPRESSION: Technically successful sonographic guided lumbar puncture.
[2019-03-25 10:29] LABS: CSF Source CSF; Clarity Clear (Clear); Tube # 4
--- NOTE | 2019-03-25 12:04 | MRI ---
MRI BRAIN WITH AND WITHOUT IV CONTRAST: Date: 03/25/19 HISTORY: Headaches. FINDINGS: Correlation is made with the CT scan of 02/21/19. No restricted diffusion is seen. No evidence of infarct, hemorrhage, mass, midline shift, or abnormal extra-axial fluid collections are noted. The ventricular size is normal and the basilar cisterns are patent. No abnormal postcontrast enhancement is seen. There is fluid in the right mastoid air cells. IMPRESSION: 1. Normal MRI of the brain. 2. Right mastoid effusion. POS: OFF
[2019-03-25] MEDS ORDERED: Gadobenate Dimeglumine 529 MG/1 ML (20ML VIAL) ONE (13:50)
== END 2019-03-25 09:50 | disposition home or self-care (01) ==
LOC: RAD 07:41
PROVIDERS: ATTEND Internal Medicine Infectious Disease
PROC: B01BZZZ Fluoroscopy of Spinal Cord (ICD-10-PCS; principal; 2019-03-25)
PROC: 009U3ZZ Drainage of Spinal Canal, Percutaneous Approach (ICD-10-PCS; principal; 2019-03-25)
DX: R51 Headache (principal); R42 Dizziness and giddiness; R63.4 Abnormal weight loss; Z21 Asymptomatic human immunodeficiency virus [HIV] infection status; Z79.899 Other long term (current) drug therapy
CPT/HCPCS: 62270; 70553; 82945; 84157; 86592; 87899; 89051; A9577